=== PATIENT | female | born 1960 | race Two or more races ===

== ENCOUNTER 2023-08-04 13:33 | Emergency (ER) | payer OTHER ==
[~2023-08-04] VITALS: Ht 154.9 cm; Wt 81.6 kg
[2023-08-04] MEDS ORDERED: ATORVASTATIN CA10 MG PO (13:43)
[2023-08-04] MEDS ORDERED: LANTUS SOL100 UNIT/1 SQ (13:43)
[2023-08-04] MEDS ORDERED: JARDIANCE10 MG PO (13:43)
[2023-08-04] MEDS ORDERED: KETOROLAC TROMETHAMINE 30 MG VIAL IM STA (15:11)
[2023-08-04] MEDS ORDERED: ORPHENADRINE CITRATE 30 MG/ML AMPUL IM STA (15:11)
[2023-08-04] MEDS ORDERED: CELEBREX200MG PO (16:17)
[2023-08-04] MEDS ORDERED: METAXALONE800 MG PO (16:17)
== END 2023-08-04 16:28 | disposition home or self-care (01) ==
LOC: ER 13:34
DX: M62.838 Other muscle spasm (principal); E11.9 Type 2 diabetes mellitus without complications; Z79.4 Long term (current) use of insulin; Z91.018 Allergy to other foods